=== PATIENT | female | born 1980 | race Caucasian/White ===

== ENCOUNTER → 2024-06-05 13:54 | Outpatient (REF) | payer OTHER, SELFPAY | LOC: RAD 13:54 | PROVIDERS: ATTENDING PHYSICIAN Obstetrics & Gynecology Gynecology | DX: N92.6 Irregular menstruation, unspecified (principal) | CPT/HCPCS: 76830; 76856 ==

== ENCOUNTER 2025-04-08 14:29 | Emergency (ER) | payer OTHER, SELFPAY ==
[2025-04-08 14:35] VITALS: BP 137/91
[2025-04-08 14:37] VITALS: BMI 24.2
--- NOTE | 2025-04-08 14:38 | ED.GENMED ---
History of Present Illness
General
Chief Complaint: Allergic Reaction
Source: patient
Time Seen by Provider: 04/08/25 14:37
History of Present Illness
History of Present Illness:
44-year-old female presents emergency room for evaluation of a reaction to a bee sting. Patient states she was stung on the left upper chest about 30 minutes prior to arrival. Patient feels tired, has a change in her voice and that she has a very
low volume and feels lightheaded. Patient denies previous allergic reactions. She applied a charcoal ointment to the sting which did not help. She does not take any prescription medications. She denies any medication allergies.
Past History
Past History
ED Past Medical History: None
ED Past Surgical History: None
Social History
Tobacco: Non-smoker
Phy Exam
Physical Exam
Physical Exam:
General: Awake, Alert, Oriented X3. Patient appears tired and has difficulty producing much of a voice
Vitals: unremarkable
Head: Atraumatic
Eyes: Pupils equal, EOMI
Throat: Airway intact, no exudates, no stridor
Neck: Trachea midline
Lungs: Clear and equal b/l
Heart: Regular rate, no murmurs
Abd: Soft, Nontender, No pulsatile mass
Neuro: Cranial nerves intact, muscle strength equal bilaterally, cerebellar exam normal
Skin: Warm, dry, no rash. Erythema surrounding the place of the sting in the left upper chest but I do not identify any diffuse urticaria or erythema.
Extremities: pulses equal b/l, no edema.
Course
Orders/Labs/Results
Orders:
Orders
04/08/25 14:37
Dexamethasone Sod Phosphate [Decadron] 10 mg IV NOW STA
Diphenhydramine [Benadryl] 50 mg IV NOW STA
Famotidine [Pepcid] 20 mg IV NOW STA
04/08/25 14:43
Test Result ONCE
04/08/25 14:44
Basic Metabolic Panel Urgent
HCG, Serum Qualitative Screen Urgent
Abnormal Lab Results
04/08/25
14:44
Glucose 119 H mg/dl
(70-99)
04/08/25 14:44
Vital Signs
Initial and Last Documented VS:
Initial Vital Signs
Pulse Resp BP Pulse Ox
97 18 137/91 100
04/08/25 14:35 04/08/25 14:35 04/08/25 14:35 04/08/25 14:35
Last Documented Vital Signs
Temp Pulse Resp BP Pulse Ox
98.5 F 92 18 102/66 100
04/08/25 14:38 04/08/25 16:13 04/08/25 16:13 04/08/25 16:13 04/08/25 16:15
MDM/Problems Addressed
Differential Diagnosis Includes:
Allergic reaction, anxiety,
MDM/Problems Addressed:
Patient presents after feeling poorly from a hymenoptera sting. No stridor, no angioedema, no systemic rash. Patient felt better after treatment with Benadryl, Pepcid and Decadron. Stable for discharge home after 2-hour period of observation.
Recommend follow-up with warehouse checker. Discharged with a EpiPen prescription.
*Pulse Oximetry
SaO2: 100
Oxygen Mode of Delivery: Room air
Patient hypoxic: no
*Critical Care Note
Total Time (30-74mins, 75-104mins- exclusive of procedures): Not Applicable
ED Attending Note
-
Portions of this chart may have been created with voice recognition software.� Occasional wrong word or��sound alike� substitutions may have occurred due to the inherent limitations of voice recognition software.
Discharge Plan
Departure
Patient Disposition: Home (Routine Discharge)
Date of Disposition: 04/08/25
Time of Disposition: 16:23
Patient with high blood pressure during this ER visit?: No
Condition: Good
Discharge Problem:
Hymenoptera sting
Prescriptions:
New
epinephrine [EpiPen 2-Mike] 0.3 mg/0.3 mL auto-injector
0.3 mg IM Q5-15M PRN (Reason: anaphylaxis) Qty: 2 0RF
No Action
ibuprofen 600 MG tablet
600 mg PO Q6 Qty: 20 0RF
diazepam 5 MG tablet
5 mg PO TIDPRN PRN (Reason: pain, spasm) Qty: 15 0RF
Referrals:
Dilip Booker DO [Family Provider, Family Practice]
Kiki Tena MD [Active, [employer]]
Activity Restrictions/Additional Instructions:
You can take 25mg of Benadrly every 6 hours for itching/hives. Follow up with your primary care provider and the warehouse checker (Dr. Tena's office).
Interventions
Interventions:
*Risk Screen - Suicide Last Done: 04/08/25 14:43
*General Assessment Last Done: 04/08/25 14:43
*Neglect/Abuse Screening Last Done: 04/08/25 14:43
*ED- Fall Risk Assessment Last Done: 04/08/25 14:43
*ED COVID-19 Vaccine History Last Done: 04/08/25 14:43
*Nursing Disposition Last Done: 04/08/25 16:32
ED- Cardiac Assessment Last Done: 04/08/25 14:44
ED- Pulmonary Assessment Last Done: 04/08/25 14:44
ED-Skin Assessment Last Done: 04/08/25 14:44
Discharge Date and Time
Discharge Date/Time: 04/08/25 16:34
Print Language: HEBREW
[2025-04-08] MEDS: BENADRYL 50 MG IV (14:39)
[2025-04-08] MEDS: PEPCID 20 MG IV (14:39)
[2025-04-08] MEDS: DECADRON 10 MG IV (14:40)
[2025-04-08 15:09] LABS: Blood Urea Nitrogen 12 mg/dl (7-17); Calcium 9.5 mg/dl (8.4-10.2); Carbon Dioxide 23 mmol/L (22-30); Chloride 106 mmol/L (98-107); Estimated Creatinine Clearance 95 ml/min; Glucose 119 mg/dl (70-99); Sodium 136 mmol/L (135-145); eGFR > 60.00
[2025-04-08 15:16] LABS: HCG, Serum Qualitative Screen Negative
[2025-04-08 15:21] VITALS: BP 111/77
[2025-04-08 16:00] VITALS: BP 102/66
[2025-04-08 16:13] VITALS: BP 102/66
== END 2025-04-08 16:34 | disposition home or self-care (01) ==
LOC: EMR 14:29
PROVIDERS: EMERGENCY PHYSICIAN Emergency Medicine; FAMILY PHYSICIAN Family Medicine
DX: T63.441A Toxic effect of venom of bees, accidental (unintentional), initial encounter (principal); R42 Dizziness and giddiness; X58.XXXA Exposure to other specified factors, initial encounter
CPT/HCPCS: 96374; 96375; 99284; 80048; 84703